=== PATIENT | female | born 1975 | race Hispanic/Latino ===

== ENCOUNTER → 2017-06-21 | Outpatient (CLI) | payer OTHER | LOC: MAMMO 08:42 | PROVIDERS: ATTEND Internal Medicine | DX: Z12.31 Encounter for screening mammogram for malignant neoplasm of breast (principal) | CPT/HCPCS: 77067 ==

== ENCOUNTER → 2017-07-29 | Outpatient (CLI) | payer OTHER ==
--- NOTE | 2017-07-30 08:57 | Diagnostic Imaging Report ---
#[id number] - USBRECOMLT ULTRASOUND OF THE LEFT BREAST : 07/29/2017 Comparison is made to exam dated: 06/21/2017 mammogram - [facility]. Color flow and real-time ultrasound were performed on the entire left breast with scanning in all four quadrants, retroareolar region and the left axilla. No cystic or solid mass is seen. IMPRESSION: NEGATIVE There is no sonographic evidence of malignancy. A 1 year screening mammogram is recommended. Margarito Croft Jr., D.O. cw/:07/29/2017 13:40:19 Clinical Support Specialist: MIRIAM DAVIS, [facility] letter sent: Normal Exam Ultrasound BI-RADS: 1 Negative
--- NOTE | 2017-07-30 08:57 | Diagnostic Imaging Report ---
#[id number] - USBRECOMRT ULTRASOUND OF THE RIGHT BREAST : 07/29/2017 Comparison is made to exam dated: 06/21/2017 mammogram - [facility]. Color flow and real-time ultrasound were performed on the entire right breast with scanning in all four quadrants, retroareolar region and the right axilla. No cystic or solid mass is seen. Specific attention to the right axilla reveals no abnormality in the area of concern. IMPRESSION: NEGATIVE There is no sonographic evidence of malignancy. A 1 year screening mammogram is recommended. Margarito Croft Jr., D.O. cw/:07/29/2017 13:37:37 [employer]acker Elastic Band: MIRIAM DAVIS, [facility] letter sent: Normal Exam Ultrasound BI-RADS: 1 Negative
== END ==
LOC: US 12:03
PROVIDERS: ATTEND Internal Medicine
DX: N63.0 Unspecified lump in unspecified breast (principal)

== ENCOUNTER → 2018-07-18 | Outpatient (CLI) | payer OTHER | LOC: MAMMO 10:13 | PROVIDERS: ATTEND Internal Medicine | DX: Z12.31 Encounter for screening mammogram for malignant neoplasm of breast (principal) | CPT/HCPCS: 77067 ==